=== PATIENT | male | born 1960 | race Caucasian/White ===

== ENCOUNTER 2024-09-02 12:52 | Emergency (ER) | payer MEDICARE, MEDICAID, SELFPAY ==
[2024-09-02] VITALS (7 sets, daily range): BP systolic 91–113; BP diastolic 46–98; PULSE 50–59; RESP 14–16; TEMP 36.5–36.6; O2SAT 96–99; BMI 30.3
--- NOTE | ~2024-09-02 | CT_ITS ---
EXAMINATION: CT CERVICAL SPINE WITHOUT CONTRAST CLINICAL INFORMATION: Fall. Head strike. COMPARISON: None available. TECHNIQUE: Noncontrast computed tomography of the cervical spine was performed. This CT examination was performed using dose optimization techniques as appropriate, variously including the following: *Automated exposure control *Adjustment of mA and/or kV according to patient size (this includes techniques or standardized protocols for targeted exams where dose is matched to indication/reason for exam; i.e. extremities or head) *Use of iterative reconstruction technique DLP: 498.79 mGy-cm FINDINGS: The prevertebral soft tissue is normal in appearance. There is straightening of the cervical lordosis. The posterior elements are anatomically aligned. The atlantooccipital articulations are intact. The C1-C2 relationship is anatomic. The dens is intact. Vertebral body heights are preserved. There is multilevel degenerative disc disease most conspicuous at C5-6 and C6-7. There is no acute cervical spine fracture. There is multilevel facet arthropathy. The visualized lung apices are clear. The thyroid gland is normal in appearance. There is a partially visualized 5 cm soft tissue attenuating mass in the superficial lobe of the right parotid gland. While the appearance favors a primary salivary neoplasm, metastatic disease is not excluded. Ultrasound guided tissue sampling may be required to better characterize. ENT follow-up is recommended. CT/CT cervical spine wo IV con IMPRESSION: No acute osseous cervical spine abnormality. There is cervical spondylosis as described. There is a partially visualized 5 cm soft tissue attenuating mass in the superficial lobe of the right parotid gland. While the appearance favors a primary salivary neoplasm, metastatic disease is not excluded. Ultrasound guided tissue sampling may be required to better characterize. ENT follow-up is recommended. Fleischner guidelines were followed. Electronically signed by: Yony Moran DO 09/02/2024 04:06 PM EST
--- NOTE | ~2024-09-02 | CT_ITS ---
EXAMINATION: CT HEAD WITHOUT CONTRAST CLINICAL INFORMATION: Change in mental status. COMPARISON: None available. TECHNIQUE: Contiguous axial imaging was performed from the skull base to vertex without intravenous administration of contrast. This CT examination was performed using dose optimization techniques as appropriate, variously including the following: *Automated exposure control *Adjustment of mA and/or kV according to patient size (this includes techniques or standardized protocols for targeted exams where dose is matched to indication/reason for exam; i.e. extremities or head) *Use of iterative reconstruction technique DLP: 1223 mGy-cm FINDINGS: There is no acute intracranial hemorrhage. There is no evidence of acute/subacute cerebral or cerebellar infarction. There is no midline shift or mass effect. No extra-axial fluid collection. The ventricles are normal in size. The orbits are symmetric and within normal limits. The calvarium is intact. There is minimal mucosal disease within the posterior aspect of the right maxillary sinus. The mastoid air cells are clear. There is a partially visualized 5 cm soft tissue attenuating mass in the superficial lobe of the right parotid gland. While the appearance favors a primary salivary neoplasm, metastatic disease is not excluded. Ultrasound guided tissue sampling may be required to better characterize. ENT follow-up is recommended. CT/CT head/brain wo IV con IMPRESSION: No acute intracranial pathology. There is a partially visualized 5 cm soft tissue attenuating mass in the superficial lobe of the right parotid gland. While the appearance favors a primary salivary neoplasm, metastatic disease is not excluded. Ultrasound guided tissue sampling may be required to better characterize. ENT follow-up is recommended. Electronically signed by: Yony Moran DO 09/02/2024 03:58 PM [facility]
--- NOTE | 2024-09-02 13:18 | PC.NURSE ---
Pt presents to ED via EMS from SNF. Reports he fell when bending over to grab something around 1030 this morning, + head hit, no LOC. Staff did not witness this, found him with 2 lacs to back of head (not bleeding at this time). Pt is on blood thinners. Alert and oriented at baseline, breathing even and unlabored, skin pale and dry. Appears lethargic. BP soft, pt refusing to be touched with any needles, refusing blood work and IV. Provider aware. Sinus kat on binder cutter hand. 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
--- NOTE | 2024-09-02 13:49 | ED.FALL ---
HPI - Fall General Chief Complaint: Fall Stated Complaint: FALL WITH HEAD STRIKE Time Seen by Provider: 09/02/24 13:25 Source: patient and EMS Mode of arrival: EMS Limitations: no limitations History of Present Illness ED Provider: DR. Olson HPI Narrative: this is a 64-year-old male brought in by EMS from [facility] for evaluation of head injury after he sustained a mechanical fall, patient was bending to picker/puller something from the floor ended up falling hitting his head on the ground, no LOC, no headache, no blurry vision, no weakness, no numbness patient had a history DVT on apixaban 5 mg daily. blood pressure found to be 91/46 patient is not taking medication for blood pressure patient stated that he feels fine patient adamantly declining any further workup to make sure no underlying cause for borderline hypotension. Related Data Allergies Allergy/AdvReac Type Severity Reaction Status Date / Time codeine Allergy Rash Verified 09/02/24 13:05 Review of Systems Review of Systems: All other systems are reviewed and are negative Constitutional: Reports as per HPI and Reports no additional constitutional complaints Eyes: Reports as per HPI and Reports no additional eye complaints Reports system reviewed and no additional complaints, except as documented Cardiovascular: Reports as per HPI and Reports no additional cardiovascular complaints Respiratory: Reports as per HPI and Reports no additional respiratory complaints Gastrointestinal: Reports as per HPI and Reports no additional gastrointestinal complaints Genitourinary: Reports no additional female genitourinary complaints Musculoskeletal: Reports no additional musculoskeletal complaints Skin/Breast: Reports system reviewed and no additional complaints, except as docu Psychiatric: Reports no additional psychiatric complaints Endocrine: Reports no additional endocrine complaints Hematologic/Lymphatic: Reports no additional hematologic/lymphatic complaints Allergic/Immunologic: Reports no additional allergic/immunologic complaints Reports system reviewed and no additional complaints, except as documented and Reports Abnormal speech present [facility] Social History Social History Smoked in Last 30 Days: No Use of substances other than those prescribed or required for medical reasons: No Advance Directives: No Advance Directives Information Provided: No Physical Exam Vital Signs: Vital Signs: Last Vital Signs Temp 97.7 F 09/02/24 13:05 Pulse 53 09/02/24 14:29 Resp 14 09/02/24 14:29 BP 102/62 09/02/24 14:29 Pulse Ox 96 09/02/24 14:29 O2 Del Method Room Air 09/02/24 14:29 BMI result Body Mass Index 30.3 Vital signs have been reviewed and appear to be correct. Blood pressure elevated. Heart rate normal. Respiratory rate normal. Temperature normal. Oxygen saturation normal. Appearance: Alert. Oriented X3. No acute distress. Head: Normal external exam. Normocephalic. 1 cm superficial laceration on the occipital scalp, no active bleeding, No underlying step-off or deformity. No Beltran signs noted. No raccoon eyes noted Eyes: PERRLA. EOMI. Conjunctiva and sclera normal. Eyelids normal. ENT: TM's Normal. Pharynx normal. Uvula midline. Moist mucous membranes. No trismus noted. No drooling noted. No muffled voice noted. Neck: Normal inspection. Neck supple. FROM. No adenopathy. Thyroid Normal. No meningeal signs. No neck mass noted. CVS: Normal heart rate and rhythm. Heart sound normal. No murmurs noted. Pulses normal throughout. Respiratory: No respiratory distress. Painless inspiration. Breath sounds normal. No wheezes/rales/rhonchi noted. Chest nontender. No accessory muscle usage noted or decreased air movement noted. Abdomen: Soft and nontender. Bowel sounds normal in all 4 quadrants. No distention noted. No organomegaly noted. No visible injury noted. Back: No CVA tenderness. Full range of motion noted. Skin: Skin warm and dry. Normal skin color. Normal skin turgor. No rashes/lesions/lacerations noted. Extremities: No lower extremity edema. Extremities exhibit normal range of motion. Extremities nontender. Neuro: Oriented X 3. Cranial nerve exam: II-XII are grossly intact No motor deficit. No sensory deficit. Reflexes normal. Course Reevaluation(s) Reevaluation #1: 64-year-old male brought in from SNF for evaluation of head injury, patient is AAO x3, GCS of 15, normal neuro exam, blood pressure is on the normal lower side but patient is asymptomatic and adamantly refusing any further workup to ensure that there is no underlying condition causing lower blood pressure. Time: 16:00 Medications Administered Discontinued Medications Generic Name Dose Route Start Last Admin Trade Name Freq PRN Reason Stop Dose Admin Diphtheria/Tetanus/Acell Pertussis 0.5 ml 09/02/24 13:58 09/02/24 14:08 Diphth,Pertus(Acell),Tet Adult 0.5 Ml Syringe IM 09/02/24 13:59 0.5 ml .ONCE ONE Administration Midodrine 10 mg 09/02/24 13:59 09/02/24 14:07 Midodrine Hcl 10 Mg Tablet PO 09/02/24 14:00 10 mg ONCE ONE Administration Medical Decision Making Differential Diagnosis Differential Diagnoses: The differential diagnosis associated with the presentation includes ( Intracranial bleed, cervical spine injury, scalp laceration, tetanus booster.) Admission/Observation Consideration of admission/observation: Escalation of care including admission/observation considered Lab Data MDM Lab Attestation statement: I reviewed the patient's lab results. Labs: Lab Results 09/02/24 Range/Units 14:25 POC Glucose 114 (60-115) mg/dL Independent Interpretation I performed an independent interpretation of an: CT Scan ( head/C-spine: No acute intracranial pathology, no cervical spine injury.) Radiology Impression Discussion of test interpretation with radiology: I have reviewed the radiologist's reading. Discharge Plan Discharge Clinical Impression: Closed head injury, Chronic anticoagulation Patient Disposition: Still a Patient Instructions: Head Injury (ED) Print Language: [place] Irish
[2024-09-02] MEDS: Midodrine HCl 10 MG TABLET PO (14:07)
[2024-09-02] MEDS: Diphth,Pertus(ACell),Tet Adult 0.5 ML SYRINGE IM (14:08)
--- NOTE | 2024-09-02 14:13 | PC.NURSE ---
Provider aware of low BPs
[2024-09-02 14:33] LABS: Glucose, Whole Blood 114 mg/dL (60-115)
== END 2024-09-02 17:44 | disposition still patient (30) ==
PROVIDERS: Emergency Provider Emergency Medicine; PCP Emergency Medicine
DX: S09.90XA Unspecified injury of head, initial encounter (principal); S01.01XA Laceration without foreign body of scalp, initial encounter; W01.0XXA Fall on same level from slipping, tripping and stumbling without subsequent striking against object, initial encounter; E11.9 Type 2 diabetes mellitus without complications; E78.5 Hyperlipidemia, unspecified; I95.9 Hypotension, unspecified; F25.9 Schizoaffective disorder, unspecified; Z86.718 Personal history of other venous thrombosis and embolism; Z86.711 Personal history of pulmonary embolism; Y93.89 Activity, other specified; Y92.9 Unspecified place or not applicable; Y99.9 Unspecified external cause status; Z79.01 Long term (current) use of anticoagulants; Z23 Encounter for immunization
CPT/HCPCS: 70450; 72125; 82947; 90471; 90715; 99284

== ENCOUNTER 2024-09-13 05:42 | Emergency (ER) | payer MEDICARE, MEDICAID, SELFPAY ==
--- NOTE | ~2024-09-13 | CT_ITS ---
EXAMINATION: CT HEAD WITHOUT CONTRAST CLINICAL INFORMATION: fall? COMPARISON: CT dated September 02, 2024 TECHNIQUE: Contiguous axial imaging was performed from the skull base to vertex without intravenous administration of contrast. This CT examination was performed using dose optimization techniques as appropriate, variously including the following: *Automated exposure control *Adjustment of mA and/or kV according to patient size (this includes techniques or standardized protocols for targeted exams where dose is matched to indication/reason for exam; i.e. extremities or head) *Use of iterative reconstruction technique DLP: 731 mGy-cm FINDINGS: Metallic oleg in the skin of the right parietal soft tissue scalp. Soft tissue contusion from prior examination nearly resolved. Limited secondary to patient's motion artifact. Bony calvarium is intact. Traumatic deformity likely old, nasal bones. No acute intracranial hemorrhage, mass effect, midline shift, hydrocephalus or herniation. 2 mm hyperdense thickening superior interhemispheric falx likely related to incomplete calcification similar since prior exam. Torres-white matter differentiation is normal. Posterior cranial fossa contents demonstrated no acute intracranial hemorrhage or mass effect. Prominence of the extra-axial CSF spaces cerebral sulci and ventricles. Bilateral multifocal patchy deep white matter hypodensity. Calcified plaques in the cavernous and supraclinoid segments both ICAs and V4 segment left vertebral artery. No air-fluid levels in the included paranasal sinuses. Tympanic cavities and mastoid air cells are aerated. 5 cm heterogeneous enhancing soft tissue mass centered in the anterior superficial right parotid gland protruding into the skin. CT/CT head/brain wo IV con IMPRESSION: No acute fracture, bony calvarium. No acute intracranial hemorrhage. Global cerebral atrophy. 5 cm mass, superficial right parotid gland. 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 Electronically signed by: Tyree Avendaño MD 09/13/2024 08:11 AM [facility]
--- NOTE | 2024-09-13 05:43 | ED.WOUNDLAC ---
HPI - Wound/Laceration General Chief Complaint: Wound/Laceration Stated Complaint: head wound Source: patient, EMS and RN notes reviewed Mode of arrival: EMS Limitations: no limitations History of Present Illness ED Provider: HPI narrative: Patient is 64 years old with history of schizoaffective disorder DVT and lower extremity on Eliquis, diabetic was seen here on 09/02 for the fall had a superficial laceration/abrasion on the right occipital area that time which was not sutured/staple had a small scab in that area today patient picked on that area and started bleeding for last 2 hours according to nursing staff this no recent fall patient is behaving normally otherwise Related Data Allergies Allergy/AdvReac Type Severity Reaction Status Date / Time codeine Allergy Rash Verified 09/13/24 05:50 Review of Systems Review of Systems: Yes all other systems are reviewed and are negative [facility] Past Medical History Medical History (Updated 09/13/24 @ 07:03 by Kevan Vogt MD) Pulmonary embolism Hyperlipidemia Hypotension Neoplasm of parotid gland Diabetes type 2 Schizoaffective disorder DVT (deep venous thrombosis) Social History Social History Smoked in Last 30 Days: No Use of substances other than those prescribed or required for medical reasons: No Advance Directives: No Do you have a plan to hurt others: No Plan Physical Exam Vital Signs: Vital Signs: Last Vital Signs Temp 98.1 F 09/13/24 05:46 Pulse 48 L 09/13/24 06:35 Resp 18 09/13/24 05:46 BP 133/72 09/13/24 06:35 Pulse Ox 98 09/13/24 06:35 O2 Del Method Room Air 09/13/24 06:35 BMI result Body Mass Index 29.8 Appearance: Alert. Oriented X3. No acute distress. Eyes: PERRLA, No Nystagmus ENT: Pharynx normal. Oral Mucosa moist 1 cm long laceration right occipital area actively bleeding Neck: Normal inspection. Neck supple. CVS: Normal heart rate and rhythm. Pulses normal. Respiratory: No respiratory distress. Equal air entry bilateral, no wheezing/rales/rhonchi Abdomen: Soft and nontender. Bowel sounds are present, no mass palpable, no CVA tenderness Skin: Skin warm and dry. Normal skin color. Normal skin turgor. Extremities: No lower extremity edema. No calf tenderness Neuro: Oriented X 3. No motor deficit. No sensory deficit.No cerebellar signs , cranial nerves II-XII intact Medical Decision Making Medical Decision Making [facility] Narrative: Patient with right occipital area laceration which was stapled labs are stable CT scan without any acute finding discharge patient back to assisted Lab Data [facility] Lab Attestation statement: I reviewed the patient's lab results. 09/13/24 06:01 09/13/24 06:01 Labs: Lab Results 09/13/24 Range/Units 06:01 WBC 5.9 (4.8-10.8) X10*3/uL RBC 4.11 L (4.60-5.80) X10*6/uL Hgb 13.7 L (14.0-18.0) g/dl Hct 42.4 (42.0-52.0) % MCV 103.2 H (80.0-98.0) fL MCH 33.3 H (27.0-33.0) pg MCHC 32.3 (31.0-36.0) g/dl RDW 13.0 (11.0-16.0) % Plt Count 208 (160-400) X10*3/uL MPV 8.8 L (9.4-12.4) fL Immature Gran % (Auto) 0.2 (0.0-0.4) % Neut % (Auto) 62.3 (45-73) % Lymph % (Auto) 26.4 (20-40) % Winn % (Auto) 7.1 (2-11) % Eos % (Auto) 3.2 (0-4) % Baso % (Auto) 0.8 (0-2) % Lymph # (Auto) 1.6 (1.2-4.9) X10*3/uL Winn # (Auto) 0.4 (0.1-1.2) X10*3/uL Eos # (Auto) 0.2 (0.0-0.4) X10*3/uL Baso # (Auto) 0.1 (0.0-0.2) X10*3/uL Abs Immat Gran (auto) 0.01 (0.00-0.03) X10*3/uL Absolute Neuts (auto) 3.7 (2.0-8.3) x10*3/uL Absolute Nucleated RBC 0.000 (0.0-0.012) X10*3/uL Nucleated RBC % (auto) 0.0 (0.0-0.2) /100WBC PT 15.3 H (10.9-12.4) SEC INR 1.3 H (0.9-1.1) Sodium 141 (135-145) mmol/L Potassium 4.4 (3.3-5.1) mmol/L Chloride 108 (96-108) mmol/L Carbon Dioxide 26 (22-29) mmol/L Anion Gap 11 L (12-20) BUN 12 (9-16) mg/dL Creatinine 0.88 (0.5-1.4) mg/dL Estim Creat Clear Calc 100.9 Estimated GFR > 60 Random Glucose 105 (60-115) mg/dL Calcium 9.6 (8.4-10.2) mg/dL Total Bilirubin 0.6 (0.0-1.0) mg/dL AST 17 (5-37) U/L ALT 10 (0-40) U/L Alkaline Phosphatase 55 (39-117) U/L Total Protein 6.7 (6.5-8.0) g/dL Albumin 3.9 (3.5-5.0) g/dL Independent Interpretation I performed an independent interpretation of an: CT Scan Interpretation: No acute Procedures Laceration Laceration 1: Site: scalp Side (If applicable): right Size (cm): 1 Description: linear Depth: simple, single layer Skin layer closed with: other ([place]# 4) Discharge Plan Discharge Clinical Impression: Laceration Patient Disposition: Xfer SNF Transfer Details: CT scan of the head is negative for acute, laceration was stapled # 4 staple removal in 7 days Instructions: Laceration (ED) Additional Instructions: Staple removal in 7 days Local care as advised Print Language: German
[2024-09-13 05:46] VITALS: BP 119/56; BP 136/74; PULSE 48; PULSE 53; RESP 18; TEMP 36.7; O2SAT 95; O2SAT 99; BMI 29.8
--- NOTE | 2024-09-13 05:50 | MHC.EDTECH ---
pt gets aggressive during wound cleaning, eventually throwing punches and spitting. Following oleg, patient adamantly refuses blood work and further testing.
--- NOTE | 2024-09-13 05:52 | PC.NURSE ---
Provider aware pt refusing to have labs taken or Ekg at this time, provider into assess laceration, area clean, dry and stapled.
--- NOTE | 2024-09-13 05:52 | MHC.EDTECH ---
patient also refuses EKG
[2024-09-13 06:05] LABS: MANUAL DIFF FLAG NO
[2024-09-13 06:06] LABS: Basophils Absolute Auto 0.1 X10*3/uL (0.0-0.2); Basophils Percent Auto 0.8 % (0-2); Eosinophils Absolute Auto 0.2 X10*3/uL (0.0-0.4); Eosinophils Percent Auto 3.2 % (0-4); Hematocrit 42.4 % (42.0-52.0); Hemoglobin 13.7 g/dl (14.0-18.0); Imm Gran Abs Auto 0.01 X10*3/uL (0.00-0.03); Imm Gran Pct Auto 0.2 % (0.0-0.4); Lymphocytes Absolute Auto 1.6 X10*3/uL (1.2-4.9); Lymphocytes Percent Auto 26.4 % (20-40); Mean Corpuscular HGB Conc 32.3 g/dl (31.0-36.0); Mean Corpuscular Hemoglobin 33.3 pg (27.0-33.0); Mean Corpuscular Volume 103.2 fL (80.0-98.0); Mean Platelet Volume 8.8 fL (9.4-12.4); Monocytes Absolute Auto 0.4 X10*3/uL (0.1-1.2); Monocytes Percent Auto 7.1 % (2-11); Neutrophils Absolute Auto 3.7 x10*3/uL (2.0-8.3); Neutrophils Percent Auto 62.3 % (45-73); Platelet Count 208 X10*3/uL (160-400); Red Blood Count 4.11 X10*6/uL (4.60-5.80); White Blood Count 5.9 X10*3/uL (4.8-10.8)
[2024-09-13 06:11] LABS: INTERNATIONAL NORM RATIO 1.3 (0.9-1.1); Prothrombin Time 15.3 SEC (10.9-12.4)
[2024-09-13 06:19] LABS: Alanine Aminotransferase 10 U/L (0-40); Albumin Level 3.9 g/dL (3.5-5.0); Alkaline Phosphatase 55 U/L (39-117); Anion Gap 11 (12-20); Aspartate Amino Transferase 17 U/L (5-37); Bilirubin Total 0.6 mg/dL (0.0-1.0); Blood Urea Nitrogen 12 mg/dL (9-16); Calcium 9.6 mg/dL (8.4-10.2); Carbon Dioxide 26 mmol/L (22-29); Chloride 108 mmol/L (96-108); Creatinine Clr Calc Pharmacy 100.9; Estimated Glomerular Filt Rate > 60; Glucose Random 105 mg/dL (60-115); Potassium 4.4 mmol/L (3.3-5.1); Sodium 141 mmol/L (135-145); Total Protein 6.7 g/dL (6.5-8.0)
--- NOTE | 2024-09-13 06:29 | PC.NURSE ---
pt taken to CT Scan, did allow Tech to draw labs,
--- NOTE | 2024-09-13 06:30 | PC.NURSE ---
pt report he all ways has body ache of 10/10, pt denies fall or head strike, nor loc. pt assist to bathroom and now in ct-scan
[2024-09-13 06:35] VITALS: BP 133/72; PULSE 48; O2SAT 98
[2024-09-13 09:09] VITALS: BP 133/72; PULSE 48; RESP 20; TEMP 37; O2SAT 98
--- NOTE | 2024-09-13 09:16 | PC.NURSE ---
2 attempts for nurse to nurse for [facility]. Gave callback info to Aliya
== END 2024-09-13 09:18 | disposition skilled nursing facility (03) ==
PROVIDERS: Emergency Provider Internal Medicine; PCP Emergency Medicine
DX: S01.111A Laceration without foreign body of right eyelid and periocular area, initial encounter (principal); W19.XXXA Unspecified fall, initial encounter; E11.9 Type 2 diabetes mellitus without complications; E78.5 Hyperlipidemia, unspecified; Z86.718 Personal history of other venous thrombosis and embolism; Z86.711 Personal history of pulmonary embolism; Z79.01 Long term (current) use of anticoagulants; Y93.9 Activity, unspecified; Y92.129 Unspecified place in nursing home as the place of occurrence of the external cause; Y99.9 Unspecified external cause status
CPT/HCPCS: 12011; 36415; 70450; 80053; 85025; 85610; 99284

== ENCOUNTER → 2024-09-13 05:42 | Outpatient (BNV) | payer MEDICARE, MEDICAID, SELFPAY | PROVIDERS: Emergency Provider Internal Medicine; PCP Emergency Medicine; Visit Provider Radiology Diagnostic Radiology | DX: D11.0 Benign neoplasm of parotid gland (principal) | CPT/HCPCS: 70450 ==